=== PATIENT | male | born 1940 | race Caucasian/White ===

== ENCOUNTER 2016-02-16 13:10 | Emergency (ER) | payer SELFPAY ==
[~2016-02-16] VITALS: Ht 167.6 cm; Wt 81.6 kg
[2016-02-16 14:29] VITALS: BP 122/74
== END 2016-02-16 14:30 | disposition left against medical advice (07) ==
LOC: ER 13:12
DX: R55 Syncope and collapse (principal)
CPT/HCPCS: 93005; 99284; A4606; Z7610